=== PATIENT | female | born 2000 | race Caucasian/White ===

== ENCOUNTER 2022-01-12 19:42 | Emergency (ER) | payer MEDICAID, OTHER ==
[~2022-01-12] VITALS: Ht 157 cm; Wt 95.0 kg
[2022-01-12 19:46] VITALS: BP 131/82
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
[2022-01-12 20:06] LABS: BILIRUBIN,URINE 1+ (NEGATIVE); CLARITY,URINE CLEAR; COLOR,URINE YELLOW; GLUCOSE, URINE (UA) NEGATIVE (NEGATIVE); KETONES,URINE 1+ (NEGATIVE); LEUKOCYTE ESTERASE ,URINE NEGATIVE (NEGATIVE); NITRITE,URINE NEGATIVE (NEGATIVE); PROTEIN,URINE NEGATIVE (NEGATIVE)
[2022-01-12 20:10] LABS: HCG,QUALITATIVE URINE NEGATIVE (NEGATIVE)
[2022-01-12 20:19] LABS: BACTERIA,URINE FEW /HPF; WBC,URINE 0-2 /HPF
[2022-01-12 20:21] LABS: AMPHETAMINE SCREEN, URINE POSITIVE (NEGATIVE); BARBITURATE SCREEN URINE NEGATIVE (NEGATIVE); BENZODIAZEPINES SCREEN URINE NEGATIVE (NEGATIVE); CANNABINOID SCREEN, URINE NEGATIVE (NEGATIVE); COCAINE SCREEN URINE NEGATIVE (NEGATIVE); METHADONE STAT NEGATIVE (NEGATIVE); OPIATE SCREEN URINE NEGATIVE (NEGATIVE); OXYCODONE STAT NEGATIVE (NEGATIVE); PROPOXYPHENE STAT NEGATIVE (NEGATIVE); TRICYCLIC ANTIDEPRESSANTS SCRE NEGATIVE (NEGATIVE)
--- NOTE | 2022-01-12 20:47 | Diagnostic Imaging Report ---
INDICATION: Right rib injury FINDINGS: Two views of the right ribs show no displaced fractures. There is no effusion or pneumothorax. Lungs are clear. IMPRESSION: Unremarkable right ribs. Dictated by: Dictated on workstation # [id number]
== END 2022-01-12 21:04 | disposition home or self-care (01) ==
LOC: ER 19:44
DX: R07.81 Pleurodynia (principal); F15.10 Other stimulant abuse, uncomplicated; Z32.02 Encounter for pregnancy test, result negative; Y00.XXXA Assault by blunt object, initial encounter
CPT/HCPCS: 71100; 80306; 81000; 84703; 99283